=== PATIENT | female | born 1955 | race Caucasian/White ===

== ENCOUNTER 2016-07-17 11:15 | Day surgery (SDC) | payer MEDICARE, OTHER ==
[~2016-07-17] VITALS: Ht 170.2 cm; Wt 59.0 kg
[~2016-07-17 11:15] MED LIST: 0.9% Sodium Chloride 1,000 ML IV SCH; ACYC400T2 PO; BACL10TA PO; CARI250T7 PO; CYCL10TA9 PO; DIAZ5TAB PO; ESTR1TAB24 PO; GABA-500 PO; GABA600T2 PO; HYDR-4003 PO; LEVO112T4 PO; LINA145C PO; NAPR500T PO; NATA300V IV; OXCA150T PO; OXCA300O PO; PANT40TA2 PO; Sodium Chloride LOK Flush 10 mL Syringe IV PRN; TAPE50TA PO; TRAM50TA2 PO; ZLP10T PO; fentaNYL-PF 50 mCg/mL 2 mL Inj IVPUSH PRN
[2016-07-17 12:32] VITALS: BP 116/72; PULSE 63; RESP 16; O2SAT 98
[2016-07-17 13:42] VITALS: BP 119/67; PULSE 62; RESP 16; O2SAT 96
[2016-07-17 13:52] VITALS: BP 119/67; PULSE 69; RESP 16; O2SAT 97
[2016-07-17 14:02] VITALS: BP 119/67; PULSE 66; RESP 16; O2SAT 99
--- NOTE | 2016-07-17 14:58 | ENDO ---
[address] [address] ENDOSCOPY PROCEDURE PATIENT: DEON CABELLO : 1955 MR#: [id number] ADMIT: 07/17/2016 JOB ID: [id number] DATE: 07/17/2016 PROCEDURE: Esophagogastroduodenoscopy. INDICATION: Gastroesophageal reflux. The patient's ASA classification is 2. Mallampati score is 2. MEDICATIONS: 1. Versed 5 mg. 2. Fentanyl 75 mcg. INSTRUMENT USED: GIF H 180 J. PROCEDURE DETAILS: After informed consent was obtained, the patient was brought into the GI suite, where she was placed on oxygen via nasal cannula and monitored with continuous pulse oximeter, telemetry and blood pressure monitoring. A time-out was performed. Then, she was placed in the left lateral decubitus position and medications were administered for sedation. A bite block was placed. The standard EGD scope was inserted through the bite block and advanced without difficulty to the second portion of duodenum. FINDINGS: 1. Normal-appearing duodenal bulb, first and second portion. 2. Normal appearing pylorus. 3. Normal appearing antrum and body of stomach. Multiple random biopsies were obtained throughout the antrum and body of the stomach. 4. Retroflexed views in the gastric body revealed a normal-appearing cardia and fundus. 5. Normal appearing GE junction with a regular Z-line at 37 cm. 6. Normal-appearing esophagus. IMPRESSION: Normal esophagogastroduodenoscopy examination to second portion of duodenum. RECOMMENDATIONS: 1. Await biopsy results. 2. Proceed to colonoscopy. COMPLICATIONS: None. ESTIMATED BLOOD LOSS: Less than 5 mL. PROCEDURE PERFORMED: Colonoscopy. INDICATION: Chronic constipation. Please see above for ASA classification, Mallampati score and medications. INSTRUMENT USED: PCF H 180 AL. PREPARATION QUALITY: Was fair. PROCEDURE DETAILS: After completion of the EGD examination, the patient was turned and then a digital rectal examination was performed, which was unremarkable. The colonoscope was then inserted into the rectum and advanced under direct visualization to the cecum, which identified by the presence of the ileocecal valve and appendiceal orifice. Once the cecum was reached, the colonoscope was withdrawn back to the rectum as mucosa and lumen were examined. In the rectum, retroflexion was performed. Following retroflexion, remaining air in the rectum was suctioned, and the procedure was completed. FINDINGS: Melanosis coli was noted throughout the proximal portion of the colon. Otherwise normal examination from rectum to cecum. IMPRESSION: Melanosis coli. RECOMMENDATIONS: Repeat colonoscopy in 10 years, sooner if symptoms should dictate. COMPLICATIONS: None. ESTIMATED BLOOD LOSS: Less than 5 mL.
--- NOTE | 2016-07-28 15:00 | PATH ---
SURGICAL PATHOLOGY Attending Physician:Lyndon Dutton CASE STATUS: Signed Out * Amended * PATIENT NAME: DEON CABELLO PID: [id number] : 1955 DATE COLLECTED:07/17/2016 23:46 SPECIMEN: Gastric, Biopsy CLINICAL HISTORY: 1). GASTRIC BIOPSY FINAL DIAGNOSIS: Gastric Biopsy: Superficial portions of gastric fundic and gastric antral mucosa with rare foci of very mild chronic gastritis. Negative for intestinal metaplasia, dysplasia, and neoplasia. Negative for H. pylori organisms by immunohistochemistry studies. ICD10 K29.7 This case was reviewed and interpreted by Dr. Arlin Russell. The final diagnosis is unchanged. This amendment is issued in order for the report to cross the interface and be available in the hospital electronic medical record. GROSS DESCRIPTION: The specimen is received in one formalin filled container labeled with the patient's name, sublabeled "gastric" and consists of 2 portions of tissue which aggregate to 0.3 x 0.3 x 0.2 CM. The specimen is entirely submitted in one cassette. 07/18/2016 DAC MICRO DESCRIPTION: IMMUNOHISTOCHEMISTRY: H. pylori:Negative. * This test was developed and its performance characteristics determined by [employer]. It has not been cleared or approved by the U.S. Food and Drug Administration. The FDA has determined that such clearance or approval is not necessary. This test is used for clinical purposes. It should not be regarded as investigational or for research. ICD-9 CODES: CPT CODES: 1: 06848, 07906 AMENDMENT(S): Amended: 07/28/2016 by Brianna Jenkins Reason:Miscellaneous The final diagnosis is unchanged. This amendment is issued in order for the report to cross the interface and be available in the hospital electronic medical record. Previous Signout Date: 07/22/2016 Electronically Signed Out Rachel Heart MD [facility] Pathology [facility], [place] [address] Technical component performed at [facility], [facility] [address], [address]
== END 2016-07-17 23:59 | disposition home or self-care (01) ==
LOC: END 11:15
PROVIDERS: ATTEND Internal Medicine Gastroenterology
DX: K63.89 Other specified diseases of intestine (principal); K59.09 Other constipation; K21.9 Gastro-esophageal reflux disease without esophagitis; K29.50 Unspecified chronic gastritis without bleeding; G35 Multiple sclerosis
CPT/HCPCS: 43239; 45378; 88305; 88342; 99153; G0500; J7030